=== PATIENT | male | born 1955 | race Caucasian/White ===

== ENCOUNTER 2021-02-01 11:14 | Outpatient (CLI) | payer MEDICARE ==
[2021-02-01 12:30] LABS: Hemoglobin 14.2 g/dL (13.5-17.5); Mean Corpuscular Hemoglobin 33.9 pg (27.0-33.0); Mean Corpuscular Volume 96.9 fl (81.2-95.1); Platelet Count 233 10x3/uL (150-450); Red Blood Cell (RBC) Count 4.19 10x6/uL (4.32-5.72); White Blood Cell (WBC) Count 5.4 10x3/uL (3.5-10.5)
[2021-02-01 12:51] LABS: PTT 24.9 sec (22.0-33.0); Prothrombin Time 10.9 sec (9.5-12.1)
[2021-02-01 13:08] LABS: Anion Gap 15 mmol/L (10-20); BUN (Urea Nitrogen) 11 mg/dL (8.4-25.7); Calc. Creatinine Clearance 0 mL/min (70-130); Calcium 9.3 mg/dL (7.8-10.44); Carbon Dioxide 24 mmol/L (23-31); Chloride 104 mmol/L (98-107); Glucose 97 mg/dL (80-115); Potassium 4.3 mmol/L (3.5-5.1); Sodium 139 mmol/L (136-145)
[2021-02-01 17:53] LABS: SARS-CoV-2 PCR by NAA Not Detected (NotDetected)
== END 2021-02-01 11:15 | disposition home or self-care (01) ==
LOC: CSHLAB 11:14
PROVIDERS: ATTEND Specialist
DX: Z01.818 Encounter for other preprocedural examination (principal); Z20.822 Contact with and (suspected) exposure to COVID-19; R00.1 Bradycardia, unspecified; R94.31 Abnormal electrocardiogram [ECG] [EKG]
CPT/HCPCS: 71046; 80048; 85027; 85610; 85730; 87635; 93005; 93010; U0003; U0005

== ENCOUNTER → 2021-02-06 | Day surgery (SDC) | payer MEDICARE ==
[~2021-02-06] MED LIST: Acetaminophen/Codeine 30-300mg Tablet PO PRN; Adenosine 6 MG/2 ML VIAL ONE; Atropine Sulfate 0.4 mg/1 ml Vial ONE; Bivalirudin 250 MG VIAL ONE; Fentanyl 100 MCG/2 ML VIAL ONE; Heparin 1,000 UNITS/ML VIAL ONE; Heparin 10,000 UNITS/ 10 ML VIAL ONE; Lidocaine 1% (PF) 30 ML VIAL ONE; Midazolam HCl 2 mg/2 ml Vial ONE; Nitroglycerin 0.4 MG TAB (25 Tab Bottle) SL PRN; Nitroglycerin 50 MG/250 ML BOT 250 ML ONE; PHENYLEPHRINE-NS 100 MCG/ML 10 ML SYRINGE ONE; Phenylephrine 40 MG in Sodium Chloride 0.9% 250 ML 250 ML IVPB SCH; Sodium Chloride 0.9% 200 ML IV PRN; TICAGRELOR 90 MG TABLET ONE; Verapamil 5 MG/2 ML VIAL ONE
[2021-02-06 07:38] VITALS: BMI 26.2
[2021-02-06 07:40] VITALS: BP 164/79; TEMP 97.6
== END ==
LOC: CSHSDC 06:32
PROVIDERS: ATTEND Specialist
DX: I65.22 Occlusion and stenosis of left carotid artery (principal); I25.10 Atherosclerotic heart disease of native coronary artery without angina pectoris; I47.2 Ventricular tachycardia; Z95.5 Presence of coronary angioplasty implant and graft; E78.2 Mixed hyperlipidemia; I48.0 Paroxysmal atrial fibrillation; Z90.49 Acquired absence of other specified parts of digestive tract; Z87.891 Personal history of nicotine dependence
CPT/HCPCS: 36222; 36227; 85347; 93005; 93458; C1760; C1887; C9600; 92928; 93010; 99152; 99153; J0153; J0461; J0583; J1644; J2001; J2250; J2370; J3010; J7050